=== PATIENT | female | born 1995 | race Caucasian/White ===

== ENCOUNTER 2018-04-14 18:14 | Inpatient (IN) | payer BC, OTHER ==
[~2018-04-14] VITALS: Ht 157.5 cm; Wt 53.1 kg
[~2018-04-14 18:14] MED LIST: MULT-1095 PO
--- NOTE | 2018-04-14 23:14 | NUR ---
PRE-ADMISSION NOTE Pt seen in intake office. Pt has a depressed mood and lethargic demeanor. Pt states they are beginning to experience s/s of withdrawal including body aches, chills, and abdominal cramping. Pt has a steady a gait and is A/O x 4. V/S: P:101, RR: 16, SPO2: 100, AND BP: 102/62. Pt is ready for admission to the unit.
--- NOTE | 2018-04-14 23:25 | NUR ---
ADMISSION NOTE Pt is a 23 y/o female who is being admitted for medically supervised withdrawal from Heroin. Pt is not currently intoxicated, as her last use was at 0800 on 04/14 of 0.2g of Heroin. Pt states that she is currently experiencing chills, body aches, abdominal cramping, anxiety, and agitation. Pt has a blunt affect, depressed mood, and disheveled appearance. Pt also has avoidant eyes contact. Pt is oriented to person, place, time, and purpose. Pt states that withdrawal from this substance has usually included body aches, sweats, chills, nausea, abdominal cramping, anxiety, agitation, and irritability. When I withdraw everything annoys me and bugs me. Pt denies ever overdosing or having any cardiac complication from withdrawing. Pt states current substance use as follows: 1. Heroin: 3-4g daily for the past year. Pt last use was 0800 on 04/14/18 of 0.2g. Her last use before that was the evening of 04/13/18 of 0.5g. She first began using when she was 16yrs old. Pt states she is seeking treatment today because they want to get sober but realized she cant do it on heir own. "I don't want to have to withdraw on my own. It's too painful and uncomfortable". Pts only other time in treatment was at [facility] in the summer of 2016. Pt states they went to an inpatient program, that she cant recall the name of, after, but left within 3 days because they werent helping her cope with her anxiety. Pt states she sruthi with her problems and anxiety by using Heroin. I know this isnt the right way to do things. Pt states Heroin has negatively affected her life, Heroin has caused me to drop out of high school and to be homeless on the streets. It has also caused me to wind up in care home and I dont want to ever go back. Im terrified of care home and if I keep using Ill wind up back there. Pt states I am ready to do whatever it takes to not wind up in care home. Pt states they wish to continue treatment in another inpatient program. Pt states the only support she has is her mother. All the other people I know are addicts. I dont have a lot to rely on. V/S: T: 97.9, P: 101, RR:16, SPO2: 100, BP: 104/62. Pts pulse is regular but tachycardic. Pts respirations are unlabored and even. Pt denies any pain. Pts skin is intact and she has NKA. Pt follows a regular diet when she can. Pt is a 20 cigarette per day smoker. Pt doesnt have a PCP and she was 15 the last time she saw a psychiatrist. Pt states they were found positive for Hepatitis C, but never received any treatment. Pt also states she was diagnosed w/ anxiety when she was 9 y/o. Pt was educated on the plan of care including detox, group and individual therapy, medication regimen, and discharge planning. Pt encouraged to have an open and honest line of communication w/ treatment team. Pt was given encouragement and support for making the choice to seek recovery.
[2018-04-14] MEDS ORDERED: MAG HYDROX/AL HYDROX/SIMETH 30 ML LIQUID UDC PO PRN (23:30)
[2018-04-14] MEDS ORDERED: HYDROXYZINE PAMOATE 25 MG CAPSULE PO PRN (23:30)
[2018-04-14] MEDS ORDERED: LOPERAMIDE HCL 2 MG CAPSULE PO PRN ×2 (23:30)
[2018-04-14] MEDS ORDERED: DICYCLOMINE HCL 20 MG TABLET PO PRN (23:30)
[2018-04-14] MEDS ORDERED: ONDANSETRON 4 MG/2 ML VIAL IM PRN (23:30)
[2018-04-14] MEDS ORDERED: LORAZEPAM 1 MG TABLET PO ONE (23:30)
[2018-04-14] MEDS ORDERED: diphenhydrAMINE 50 MG CAPSULE PO PRN (23:30)
[2018-04-14] MEDS ORDERED: MAGNESIUM HYDROXIDE 30 ML LIQUID UDC PO PRN (23:30)
[2018-04-14] MEDS ORDERED: ACETAMINOPHEN 325 MG TABLET PO PRN (23:30)
[2018-04-14] MEDS ORDERED: MIRALAX 17 GM POWD.PACK PO PRN (23:30)
[2018-04-14 23:54] LABS: *AMPHETAMINE, URINE POSITIVE (NEGATIVE); *BARBITURATE, URINE NEGATIVE (NEGATIVE); *CANNABINOID, URINE POSITIVE (NEGATIVE); *COCCAINE, URINE NEGATIVE (NEGATIVE); *OPIATE, URINE POSITIVE (NEGATIVE); *PHENCYCLIDINE SCREEN,URINE NEGATIVE (NEGATIVE)
[2018-04-15 00:15] VITALS: BP 104/62
[2018-04-15] MEDS: BUPRENORPHINE HCL 2 MG TAB.SUBL SL PRN ×3 (00:21→13:29)
--- NOTE | 2018-04-15 00:21 | NUR ---
PRN ATIVAN AND SUBUTEX Ativan 2mg and Subutex 4mg were given for CIWA of 13. Pt states their anxiety has increased and they feel like crap. Will reassess pt in 1hr.
[2018-04-15 00:37] LABS: *URINE HCG, QUAL NEGATIVE (NEGATIVE)
--- NOTE | 2018-04-15 01:21 | NUR ---
PRN ATIVAN AND SUBUTEX REASSESSMENT Pt is in bed w/ her eyes closed. Pt's respirations are unlabored and even.
--- NOTE | 2018-04-15 07:08 | NUR ---
END OF SHIFT NOTE Endorsed pt to oncoming nurse. Pt is a 23 y/o female A/O to person, place, time, and purpose. Pt was admitted for medically supervised withdrawal from Heroin. Pt began to present w/ anxiety, sweats, chills, body aches, depressed mood, flat affect, and agitation. A one time dose of both Ativan and Subutex were given and noted effective. Pt denies any S/I or H/I. Pts fluid intake was 500ml and she slept for 6hrs. Last COWS 13 @ 0000. Call light is within reach.
--- NOTE | 2018-04-15 07:30 | NUR ---
Start of Shift Notes: Report received from day shift nurse. Per day shift nurse, last COWS was 13. Upon start of shift, pt was in bed with eyes closed. No facial grimacing but noted with slight tremors. Pt stated I dont feel that good. I feel like my body is aching all over. During assessment, pt is AOx4. Respirations even and unlabored. Pt observed with restless legs, chills, and slight sweats. Pt currently on PRN Subutex to manage withdrawal symptoms. MD to see pt today to assess for taper management. Bed in lowest position. Side rails up x2. Call light functioning and within reach. All needs attended and met. Will continue to monitor.
[2018-04-15 08:00] VITALS: BP 93/57
--- NOTE | 2018-04-15 08:00 | NUR ---
COWS 15 Pt noted with increased pulse, slight sweating, frequent shifting, aching joints, slight tremors, anxiety. COWS 15.
[2018-04-15] MEDS ORDERED: TUBERCULIN,PURIF.PROT.DERIV. 5 TU/0.1 ML TEST ID ONE (09:00)
--- NOTE | 2018-04-15 09:25 | NUR ---
Subutex PRN: Pt noted with tremors, body aches, restless legs, and sweating. COWS 15. 4mg Subutex PRN given as ordered. Will continue to monitor.
--- NOTE | 2018-04-15 09:58 | NUR ---
Subutex correction: Unable to scan previous Subutex medication. Subutex given at 0925. Medication scanned at 0958.
[2018-04-15] MEDS ORDERED: 4 DAY TAPER BUPRENORPHINE -SERENITY PROTOCOL SL PRN (10:15)
--- NOTE | 2018-04-15 10:30 | NUR ---
Subutex Reassessment: Pt stated some relief from body aches. Pt currently in bed trying to relax. Subutex effective. COWS 14
[2018-04-15 12:00] VITALS: BP 113/65
--- NOTE | 2018-04-15 12:00 | NUR ---
COWS 14 Pt noted with increased heart rate, flushed face, restlessness, body aches, slight tremors, anxiety/agitation. COWS 14.
[2018-04-15] MEDS: ONDANSETRON ODT 4 MG TAB.RAPDIS SL PRN ×2 (13:28→19:39)
[2018-04-15] MEDS: BUPRENORPHINE HCL 2 MG TAB.SUBL SL SCH ×2 (15:59→21:17)
[2018-04-15 16:00] VITALS: BP 119/73
--- NOTE | 2018-04-15 16:00 | NUR ---
COWS 14 Pt noted with elevated pulse, flushed face, restlessness, generalized body aches, some tremors, anxiety/agitation. COWS 14.
--- NOTE | 2018-04-15 16:30 | NUR ---
MD Communication: Pt noted with increased HR from 100-110. Pt stated "I feel very anxious. I have an anxiety disorder". Pt noted unable to focus. MD made aware with new order for 2mg Ativan PO Q4HPRN for anxiety/agitation. Order noted and carried out.
[2018-04-15] MEDS: LORAZEPAM 1 MG TABLET PO PRN ×2 (16:47→21:17)
--- NOTE | 2018-04-15 16:47 | NUR ---
Ativan PRN: Pt noted with severe anxiety. Pt unable to sit still and is restless in bed. HR 97 while supine. 2mg Ativan PRN given as ordered for anxiety/agitation. Will continue to monitor.
--- NOTE | 2018-04-15 17:50 | NUR ---
Ativan Reassessment: Pt stated some relief from her anxiety. Pulse still noted around 90. Will continue to monitor.
--- NOTE | 2018-04-15 18:00 | NUR ---
Lab draw and order: Traffic Counter attempted to draw blood but bilateral upper extremities are scarred. Unable to draw blood. New order per MD to draw blood on lower extremities.
--- NOTE | 2018-04-15 19:13 | NUR ---
End of Shift Note: Report given to night shift manager nurse. Still pending lab draw. Lab to redraw on lower extremities later. Pt noted with increased heart rate and anxiety. MD with new order for 2mg Ativan PRN which was given once. Pt continues on Subutex taper to manage withdrawal symptoms. Last COWS was 14 at 1600. Bed in lowest position. Side rails up x2. Call light functioning and within reach. All needs attended and met.
--- NOTE | 2018-04-15 19:50 | NUR ---
START OF SHIFT NOTE Rcvd report from outgoing nurse. Pt is a 23 y/o female A/O to person, place, time, and purpose. Pt was admitted for medically supervised withdrawal from Opiates. Pt has been presenting w/ nausea, sweats, chills, body aches, anxiety, agitation, depressed and withdrawn mood, and blunted affect. PRN Subutex and Zofran were given and noted effective by outgoing nurse. Last COWS 14 @ 1600. Call light is within reach. Pt will continue to be monitored and needs met.
[2018-04-15 20:14] VITALS: BP 107/64
--- NOTE | 2018-04-15 20:17 | NUR ---
COWS ASSESSMENT COWS 18. Pt has been presenting w/ nausea, sweats, chills, body aches, anxiety, agitation, depressed and withdrawn mood, and blunted affect. V/S: T:97.9, P:110, RR:16, SPO2:100, BP:107/64.
[2018-04-15 20:45] LABS: ETHANOL < 3 MG/DL (0-0)
[2018-04-15 20:48] LABS: ALANINE AMINOTRANSFERASE 82 U/L (14-59); ALKALINE PHOSPHATASE 74 U/L (50-136); AMYLASE 56 U/L (25-115); ASPARTATE AMINOTRANSFERASE 26 U/L (15-37); BILIRUBIN,TOTAL 0.3 mg/dL (0.2-1.0); CARBON DIOXIDE 27 mmol/L (21-32); CHLORIDE 102 mmol/L (98-107); CREATININE 0.6 mg/dL (0.6-1.3); GLUCOSE 102 mg/dL (74-106); LIPASE 116 U/L (73-393); MAGNESIUM 1.9 mg/dL (1.8-2.4); POTASSIUM 3.8 mmol/L (3.5-5.1); TOTAL PROTEIN, SERUM 7.8 g/dL (6.4-8.2); UREA NITROGEN, BLOOD 8 mg/dL (7-18)
[2018-04-15 20:57] LABS: THYROID STIMULATING HORMONE 0.156 mIU/mL (0.358-3.740)
--- NOTE | 2018-04-15 21:17 | NUR ---
PRN ZOFRAN ADMINISTRATION Zofran 4mg given for nausea w/ 2 episodes of emesis. Will reassess pt in 30min. Addendum: 04/15/18 at 2253 by CHELSEY STALEY RN Error: wrong time, actually given @ 1939.
--- NOTE | 2018-04-15 21:17 | NUR ---
PRN ATIVAN ADMINISTRATION Ativan 2mg given for anxiety and CIWA 18. Pt c/o of racing thoughts. Pt has a HR of 110. Will reassess pt in 1 hr.
--- NOTE | 2018-04-15 21:47 | NUR ---
[place] REASSESSMENT Pt states nausea has subsided and no more episodes of emesis. Will continue to monitor pt. Addendum: 04/15/18 at 2300 by CHESLEY STALEY RN Error: wrong time, actually reassessed @ 2008.
--- NOTE | 2018-04-15 22:17 | NUR ---
PRN ATIVAN REASSESSMENT Pt is in bed w/ her eyes closed. Pt's respirations are unlabored and even. Will continue to monitor.
--- NOTE | 2018-04-16 00:29 | NUR ---
COWS DEFERRED/ V/S REFUSED Pt is in bed w/ her eyes closed. Pt's respirations are unlabored and even.
--- NOTE | 2018-04-16 04:30 | NUR ---
COWS DEFERRED,. V/S REFUSED Pt is in bed w/ her eyes closed. Pt's respirations are unlabored and even.
--- NOTE | 2018-04-16 07:02 | NUR ---
END OF SHIFT NOTE Endorsed pt to oncoming nurse. Pt is a 23 y/o female A/O to person, place, time, and purpose. Pt was admitted for medically supervised withdrawal from Opiates. Pt has been presenting w/ nausea, sweats, chills, body aches, anxiety, agitation, depressed and withdrawn mood, and blunted affect. Pt denies any S/I or H/I. PRN Ativan and Zofran were given and noted effective. Pts fluid intake was 350ml and she slept for 10hrs. Last COWS 14 @ 1600. Call light is within reach.
--- NOTE | 2018-04-16 07:50 | NUR ---
Start of Shift / Pt is a 23 y/o F admitted on 03/14/18 for medically supervised opiate withdrawal. Pt is placed on a 4 day subutex taper that started on 04/15/18 and tolerating well. Received pt laying in bed, has a disheveled appearance. Pt responds with her eyes closed stating, I feel horrible. Pt presents anxiety, agitation, irritability, restlessness, diaphoresis, gross tremors noted, generalized body aches- states 10/10 pain, nausea, goosebumps, stomach cramps, pupils larger than normal, and nasal congestion. Educated pt with todays plan of care and med regimen. Encouraged pt to increase fluids as tolerated to facilitate in detox. Last @1999, ativan 2 mg, and zofran PRNS were given last night. Pt slept 10 hrs. Side rails upx2, bed in lowest position. Call light is within reach. Safety measures in place. Will continue to monitor. Addendum: 04/16/18 at 1117 by MARC WOLFF RN HR: 109
[2018-04-16 08:00] VITALS: BP 97/62
[2018-04-16] MEDS: LORAZEPAM 1 MG TABLET PO PRN ×2 (08:34→14:52)
[2018-04-16] MEDS: METHOCARBAMOL 750 MG TABLET PO PRN (08:35)
--- NOTE | 2018-04-16 08:36 | NUR ---
PRN Ativan 2 mg po prn, robaxin 750 mg po prn, bentyl 20 mg po prn given for stomach cramps, muscle cramps, anxiety 03/22; pt presents with facial grimacing, restlessness, and irritability. Will monitor and reassess. Addendum: 04/16/18 at 1117 by MARC WOLFF RN HR: 109
[2018-04-16] MEDS ORDERED: BUPRENORPHINE HCL 2 MG TAB.SUBL SL SCH (09:00)
--- NOTE | 2018-04-16 09:36 | NUR ---
Reassessment Pt reports meds were effective and decreased anxiety now 5/10, muscle and stomach cramps. Will monitor and reassess.
--- NOTE | 2018-04-16 10:50 | NUR ---
UPDATE OF SUBSTANCE USE HX Pt verbalized that she uses methamphetamine 0.5 - 1 gram IV/smoke on a daily basis, for around 2 years. Last used on the day of admission.
--- NOTE | 2018-04-16 11:07 | NUR ---
PRN Vistaril 25 mg po given for increased anxiety, pt is in tears and in a position. Will monitor and reassess.
[2018-04-16 12:00] VITALS: BP 109/66
--- NOTE | 2018-04-16 12:02 | NUR ---
COWS 17 Pt presents increased anxiety, agitation, irritability, restlessness; pt burst in tears when asked how she was feeling, and is in a position in bed. Pt also exhibits dark circles under eyes, depressed and anxious expression, diaphoresis, cold/hot flashes, gross/fine tremors noted, generalized body aches- states 8/10 pain, nausea, goosebumps, stomach cramps, pupils larger than normal, and nasal congestion. Vistaril prn was given for increased anxiety. Encouraged pt to use deep breathing exercises. Will continue to monitor. Addendum: 04/16/18 at 1441 by MARC WOLFF RN HR 104
--- NOTE | 2018-04-16 12:07 | NUR ---
Reassessment Pt verbalized vistaril was not effective for increase in anxiety. Encouraged pt to use deep breathing exercises to promote relaxation. Will continue to monitor closely.
[2018-04-16] MEDS ORDERED: CLONIDINE HCL 0.1 MG TABLET PO PRN (13:45)
--- NOTE | 2018-04-16 14:46 | NUR ---
Therapist prompted client to attend group therapy.
--- NOTE | 2018-04-16 14:52 | NUR ---
PRN Ativan 2 mg po prn given for extreme anxiety, sense of panic. Pt is in tears and has poor eye contact. Will monitor and reassess. Addendum: 04/16/18 at 1752 by MARC WOLFF RN 02/19 anxiety
[2018-04-16] MEDS: BUPRENORPHINE HCL 2 MG TAB.SUBL SL SCH ×2 (14:53→20:55)
--- NOTE | 2018-04-16 15:52 | NUR ---
Reassessment Pt is laying in bed with eyes closed, appears to be sleeping. Safety measures in place. Will continue to monitor.
[2018-04-16 16:00] VITALS: BP 114/60
--- NOTE | 2018-04-16 16:30 | NUR ---
COWS 17 HR 108. Pt is laying in bed covered in blankets, has a avoidant eye contact, presents anxiety, agitation, irritability, restlessness, depressed and anxious expression and mood, diaphoresis, cold/hot flashes, gross/fine tremors noted, generalized body aches- states 8/10 pain, nausea, goosebumps, stomach cramps, pupils larger than normal, and nasal congestion. Refuses prns at this time. Encouraged pt to use deep breathing exercises. Will continue to monitor.
--- NOTE | 2018-04-16 18:37 | NUR ---
End Of Shift Pt has been isolated in room throughout shift, coming out occasionally to go smoke. Pt has been highly anxious, w/ increased emotional amplitude, depressive mood; tremors noted. Pt has been given Ativan 2 mg po prn x2, bentyl, robaxin, and vistaril prns. Pt refuses to take ibuprofen prn. Pt reported she was using meth 0.5 - 1 gram IV/smoke on a daily basis for 2 years straight. Last COWS 17. Pt ate 0/25/25% of meals. Consumed 550ml of fluid. Encouraged pt to increased consumption of fluids and meals as tolerated. Safety measures in place.
--- NOTE | 2018-04-16 18:55 | NUR ---
START OF SHIFT NOTE: The patient is a 23 year old female admitted to [facility] on 04/14/2018 for medically supervised from Opioid and Methamphetamine withdrawal, continues ordered 4 day Subutex tapers (today is second day), which tolerated well. Patient is alert and oriented x4, with steady gait, and with clear soft speech, cooperative, and verbally appropriate. She is appears sad, worried, with anxious mood and flat affect. Patient noted disheveled, unkempt, with uncombed hair. Patient denies SI/HI. The most recent COWS=17 at 1600. During day shift patient experienced moderate withdrawal symptoms such as anxiety, agitation, irritability, bilateral dilated pupils, nervousness, severe general body aches, headache, sweating, stomach cramps, bilateral tremors, restlessness, fatigue, and yawning, per day shift nurse report. PRN Vistaril 25 mg PO administrated for anxiety at 1107, and was effective. Patient remains compliant with treatment, medications, and diet regimen. Encouraged to attend group activities. Safe and calm environment provided. Encouraged to intake fluids as tolerated. All needs met. Safety measures: Call light within reach, bed locked in lowest position, padded bed rails up x2. Endorsed by day shift nurse.
[2018-04-16 20:00] VITALS: BP 112/68
--- NOTE | 2018-04-16 20:00 | NUR ---
COWS ASSESSMENT COWS=12 at 2000. The patient experienced withdrawal symptoms such as anxiety, agitation, irritability, bilateral dilated pupils, nervousness, general body aches, headache, flashed face, clammy skin, sweating, slight bilateral tremors, restlessness, fatigue, and yawning. Ordered medications scheduled for 2099 will be administrated. Safe and calm environment provided. All needs met. Safety measures: Call light within reach, bed locked in lowest position, padded bed rails up x2. Will continue to monitor closely.
--- NOTE | 2018-04-17 | NUR ---
VS REFUSED, COWS DEFERRED Patient sleeping on her side, respirations are unlabored and even, RR:15. Patient refused VS at 0000, COWS deferred at 0000, to be assessed while patient will awake. Safe and calm environment provided. All needs met. Safety measures: Call light within reach, bed locked in lowest position, padded bed rails up x2.
--- NOTE | 2018-04-17 04:00 | NUR ---
VS REFUSED, COWS DEFERRED Patient sleeping on her side, respirations are unlabored and even, RR:16. Patient refused VS at 0400, COWS deferred at 0400, to be assessed while patient will awake. Safe and calm environment provided. All needs met. Safety measures: Call light within reach, bed locked in lowest position, padded bed rails up x2.
[2018-04-17 06:00] VITALS: BP 90/51
--- NOTE | 2018-04-17 06:00 | NUR ---
COWS ASSESSMENT COWS=14 at 0600. The patient experienced withdrawal symptoms such as anxiety, agitation, irritability, bilateral dilated pupils, nervousness, severe general body aches, flashed face, clammy skin, sweating, slight bilateral tremors, restlessness, fatigue, and yawning. Safe and calm environment provided. All needs met. Safety measures: Call light within reach, bed locked in lowest position, padded bed rails up x2. Will continue to monitor closely.
[2018-04-17 06:07] LABS: HEPATITIS B SURFACE AG Negative (Negative)
--- NOTE | 2018-04-17 07:24 | NUR ---
END OF SHIFT NOTE: The patient is a 23 year old female admitted to [facility] for medically supervised from Opioid and Methamphetamine withdrawal, continues ordered 4 day Subutex tapers (today is third day), which tolerated well. Patient is alert and oriented x4, with steady gait, and with clear soft speech, cooperative, and verbally appropriate. She is appears sad, worried, with anxious mood and flat affect. Patient noted disheveled, unkempt, with uncombed hair. COWS=12 at 2000. The most recent COWS=14 at 0600. The patient experienced withdrawal symptoms such as anxiety, agitation, irritability, bilateral dilated pupils, nervousness, general body aches, , flashed face, clammy skin, sweating, slight bilateral tremors, restlessness, fatigue, and yawning. Patient refused VS at 0000 and at 0400, CIWA differed at 0000 and 0400. No PRN medications administrated during shift mgr. Patient remains compliant with treatment, medications, and diet regimen. Patient slept for 10 hours, intake 250 ml, output: voided x1. Safe and calm environment provided. Encouraged to intake fluids as tolerated. All needs met. Safety measures: Call light within reach, bed locked in lowest position, padded bed rails up x2. Endorsed to day shift nurse.
--- NOTE | 2018-04-17 08:00 | NUR ---
Start Of Shift / COWS 17 Pt is a 23 y/o F admitted on 03/14/18 for medically supervised opiate withdrawal. Pt is placed on a 4 day subutex taper that started on 04/15/18 and tolerating well. Received pt a/ox4 but drowsy, still in bed, has a disheveled appearance and a flat affect, is withdrawn. Pt presents high anxiety, agitation, irritability, restlessness, diaphoresis, gross and fine tremors noted, generalized body aches 10/10 pain, nausea, goosebumps, stomach cramps, pupils larger than normal, nasal congestion, increased emotional amplitude, anhedonia, and dysphoria. Educated pt with todays plan of care and med regimen. Encouraged pt to increase fluids as tolerated to facilitate in detox. Last COWS 14 @0600, no PRNS were given last night. Pt slept 10 hrs. Side rails upx2, bed in lowest position. Call light is within reach. Safety measures in place. Will continue to monitor.
[2018-04-17 08:09] VITALS: BP 96/62
[2018-04-17] MEDS: BUPRENORPHINE HCL 2 MG TAB.SUBL SL SCH ×3 (08:55→20:52)
--- NOTE | 2018-04-17 12:00 | NUR ---
COWS 17 Pt has been isolative in room, stated she does not feel well enough to attend group and socialize. Pt presents high anxiety, agitation, irritability, restlessness, diaphoresis, clammy skin, gross and fine tremors noted, generalized body aches 10/10 pain, piloerection of skin, stomach cramps, pupils larger than normal, nasal congestion, increased emotional amplitude, anhedonia, and dysphoria. Refuses prns at this time. Encouraged pt to participate in non-pharmacological methods. Safety measures in place.
[2018-04-17 12:37] VITALS: BP 90/57
[2018-04-17 16:30] VITALS: BP 138/86
--- NOTE | 2018-04-17 16:30 | NUR ---
COWS 17 Pt has been mostly isolative in room and withdrawn. Pt was able to take a shower and returned back to her room. Pt states her main symptom that is unmanageable is her anxiety but she refuses to take clonidine or vistaril. Pt presents high anxiety, agitation, irritability, restlessness, diaphoresis, clammy skin, cold/hot flashes and sensitivity, gross and fine tremors noted, generalized body aches pain, piloerection of skin, stomach cramps, pupils larger than normal, nasal congestion, increased emotional amplitude, anhedonia, and dysphoria. Was given scheduled subutex 2mg for 1500. Encouraged pt to use non-pharmacological methods to help cope with s/s. Safety measures in place.
--- NOTE | 2018-04-17 18:53 | NUR ---
START OF SHIFT NOTE: Endorsed patient, a 23 year old female, continues 4 day Subutex tapers (day 3), ordered for Opioid and Methamphetamine withdrawal. She is which tolerated well. Patient remains compliant with treatment, medications, and diet regimen. Patient is alert and oriented x4, with steady gait, clear soft speech. Last COWS=17 at 1500. During day shift patient experienced anxiety, agitation, irritability, tachycardia, bilateral dilated pupils, nasal congestion, nervousness, severe general body aches, goose bumps, sweating, stomach cramps, bilateral tremors, restlessness, and fatigue, per day shift nurse report. Encouraged to attend group activities. Safe and calm environment provided. Encouraged to intake fluids as tolerated. All needs met. Safety measures: Call light within reach, bed locked in lowest position, padded bed rails up x2. Endorsed by day shift nurse.
--- NOTE | 2018-04-17 18:53 | NUR ---
End Of Shift Pt has had elevated HR throughout shift. Pt has been isolative and withdrawn in room. Pt continued to be highly anxious, w/ increased emotional amplitude, depressive mood, pt was in tears whenever she was asked how she was doing. Pt refused all prn, stating clonidine and vistaril, robaxin and ibuprofen.. they dont work; despite educating pt. Last COWS 17. Pt ate 0/50/25% of meals. Consumed 1500 ml of fluid. Encouraged pt to increase consumption of fluids and meals due to low nutrional intake. Safety measures in place.
[2018-04-17 20:00] VITALS: BP 105/62
--- NOTE | 2018-04-17 20:00 | NUR ---
COWS ASSESSMENT COWS=13 at 2000. The patient presented with anxiety, agitation, irritability, nervousness, sweating, bilateral tremors, restlessness, fatigue, and yawning. Scheduled medications will be administrated as ordered. Safe and calm environment provided. All needs met. Safety measures: Call light within reach, bed locked in lowest position, padded bed rails up x2. Will continue to monitor closely.
--- NOTE | 2018-04-18 | NUR ---
VS REFUSED, COWS DEFERRED Patient sleeping on her side, respirations are unlabored and even, RR:14. Patient refused VS at 0000, COWS deferred at 0000, to be assessed while patient will awake. Safe and calm environment provided. All needs met. Safety measures: Call light within reach, bed locked in lowest position, padded bed rails up x2.
--- NOTE | 2018-04-18 04:00 | NUR ---
VS REFUSED, COWS DEFERRED Patient sleeping, respirations are unlabored and even, RR:14. Patient refused VS at 0400, COWS deferred at 0400, to be assessed while patient will awake. Safe and calm environment provided. All needs met. Safety measures: Call light within reach, bed locked in lowest position, padded bed rails up x2.
--- NOTE | 2018-04-18 07:30 | NUR ---
START OF SHIFT PT 23 y/o female admitted for medically supervised withdrawal from heroin. Received in room on bed with eyes closed resting, but easily arousable to name. Pt alert and oriented to name, place, and time. P[place]la. Skin warm and moist to touch. Respirations even and unlabored. Appears disheveled and unkempt. Clothes and empty drink bottles scattered throughout the room. Anxious. Very irritable this morning with one yelling episode. Bilateral hand tremors noted. Pressured speech. Complaints of body aches and general discomfort. It was reported that pt slept for 11 hours last night. Pt is on a 4 day subutex taper and is on day 4. Last cows=13 @1999. Bed on lowest position with side rails x2 up for safety. Call light within reach.
--- NOTE | 2018-04-18 07:38 | NUR ---
END OF SHIFT NOTE: Patient is alert and oriented x4, with clear speech, and steady gait. She is on last day on ordered 4 day Subutex taper, tolerated well. Withdrawal symptoms were closely monitored. The patient presented with anxiety, agitation, irritability, nervousness, sweating, bilateral tremors, restlessness, fatigue, and yawning. Last COWS=13 at 2000. No PRN Medications administered. Patient remains compliant with treatment, medications, and diet regimen. Patient was encouraged to attend group activities. Patient slept for a total of 11 hours, 1,591 ml, output: voided x2. Safe and calm environment provided. Patient was encouraged to intake fluids as tolerated. All needs met. Safety measures in place: Call light within reach, bed locked in lowest position, and padded bed rails up x2. Endorsed to day shift nurse.
[2018-04-18 08:00] VITALS: BP 104/60
--- NOTE | 2018-04-18 08:00 | NUR ---
COWS ASSESSMENT cows=13. Complaints of body aches. Bilateral hand tremors noted. Complaints of intermittent perspiration. Generalized discomfort.
[2018-04-18] MEDS: IBUPROFEN 600 MG TABLET PO PRN (08:37)
[2018-04-18] MEDS: METHOCARBAMOL 750 MG TABLET PO PRN (08:38)
--- NOTE | 2018-04-18 08:40 | NUR ---
PRN MOTRIN ROBAXIN pt states has general body ache 7/10. robaxin po prn per MD order given and tolerated well. Pt states has generalized body pain 6/10. Motrin po prn per MD order given and tolerated well.
[2018-04-18] MEDS ORDERED: BUPRENORPHINE HCL 2 MG TAB.SUBL SL SCH (09:00)
--- NOTE | 2018-04-18 09:40 | NUR ---
PRN SHANTEL SIMPSON EVAL Pt states pain is 4/10 and body aches is 4/10.
[2018-04-18 12:00] VITALS: BP 111/68
--- NOTE | 2018-04-18 12:00 | NUR ---
COWS ASSESSMENT cows=9. Bilateral hand tremors noted. Complaints generalized discomfort. Generalized body aches. Anxious and restless. Irritable with pressured speech noted.
[2018-04-18 16:00] VITALS: BP 106/52
--- NOTE | 2018-04-18 16:00 | NUR ---
COWS ASSESSMENT cows=8. Bilateral hand tremors noted. Anxious and restless. Easily irritable/ agitated. Pressured speech noted.
--- NOTE | 2018-04-18 19:01 | NUR ---
START OF SHIFT NOTE: The patient was endorsed by day shift nurse, report received. The patient is alert and oriented x4, completed ordered 5 day Subutex taper ordered for Opioid withdrawal, which tolerated well. Withdrawal symptoms was closely monitored throughout day shift. The latest COWS=8 at 1600. During day shift the patient presented with anxiety, agitation, irritability, nervousness, bilateral pupils size for room light larger than normal size, bilateral tremors that can be felt not observe, myalgia, restlessness, and fatigue. PRN Robaxin 750 mg PO administered for myalgia at 0840, PRN Motrin 600 mg PO administered for generalized body pain at 0840, and were effective. The patient remains compliant with medications. She was encouraged increased ADL, was encouraged to attend group activities, was encouraged to fluids intake as tolerated. All needs met. Safe and calm environment provided. Safety measures in place: Call light within reach, bed is locked in lowest position, padded bed rails up bilaterally. The patient endorsed by day shift nurse. Will continue to monitor closely.
--- NOTE | 2018-04-18 19:01 | NUR ---
END OF SHIFT PT 23 y/o female admitted for medically supervised withdrawal from heroin. Alert and oriented to name, place, and time. P[place]. Skin warm and moist to touch. Respirations even and unlabored. Appears disheveled and unkempt. Clothes and food wrappings scattered throughout the room. Encouraged to maintain hygiene. Anxious and restless. Complaints of body aches. Easily agitated and with episodes of raising voice this morning. Observed mostly in recreational room throughout the day. Attended group activity. Medication compliant. Last cows=8 @1600. Completed a 4 day subutex taper. Pt is scheduled to be discharged tomorrow. Bed on lowest position with side rails x2 up for safety. Call light within reach.
[2018-04-18 20:00] VITALS: BP 107/54
--- NOTE | 2018-04-18 20:00 | NUR ---
COWS ASSESSMENT COWS=10 at 2000. The patient presented with anxiety, agitation, irritability, nervousness, bilateral tremors that can be felt not observe, restlessness, fatigue, and yawning. Safe and calm environment provided. All needs met. Safety measures in place: Call light within reach, bed locked in lowest position, padded bed rails up x2. Will continue to monitor closely.
--- NOTE | 2018-04-19 | NUR ---
VS REFUSED, COWS DEFERRED Patient refused VS at 0000, COWS deferred at 0000, to be assessed while patient will awake. The patient is sleeping on her side, and her respirations are even and unlabored. RR=15. Safe and calm environment provided. All needs met. Safety measures: Call light within reach, bed locked in lowest position, padded bed rails up x2.
--- NOTE | 2018-04-19 04:00 | NUR ---
VS REFUSED, COWS DEFERRED Patient sleeping on her side, respirations are unlabored and even. RR:14. Patient refused VS, COWS deferred, to be assessed while patient will awake. Safe and calm environment provided. All needs met. Safety measures in place: Call light within reach, bed locked in lowest position, padded bed rails up x2. Will continue to monitor closely.
--- NOTE | 2018-04-19 07:27 | NUR ---
END OF SHIFT NOTE: Endorsed patient is alert and oriented x4: date, time, person, and situation, presented for Opioid withdrawal, and completed ordered 5 day Subutex taper , which tolerated well. Withdrawal symptoms was closely monitored. The patient remains compliant with medications. The patient scheduled for discharging today at 0930. COWS=10 at 2000. The patient presented with anxiety, agitation, irritability, nervousness, bilateral tremors that can be felt not observe, restlessness, fatigue, and yawning. No PRN medications was administered during my shift. Patient was encouraged increased activities. Encouraged to attend group activities. Encouraged to fluids intake as tolerated. The patient was encouraged to fluids intake as tolerated. The patient was encouraged to attend group activities. Patient slept for 10 hours, intake 1,091ml, output: voided x1. Safe and calm environment provided. Needs attended. Call light in reach, bed locked in low, padded side rails up as appropriate. The patient was endorsed to day shift nurse.
--- NOTE | 2018-04-19 07:30 | NUR ---
START OF SHIFT Pt 23 y/o female admitted for medically supervised withdrawal from heroin. Pt received in room on bed with eyes closed resting, but easily arousable to name. Pt alert and oriented to name, place, and time. P[place]. Skin warm and moist to touch. Respirations even and unlabored. Appears disheveled and unkempt. Clothes scattered throughout the room. Encouraged to maintain hygiene. Pt is scheduled to be discharged today. It was reported that pt slept for 7 hours last night. Last cows=10 @ 1999. Pt completed a 4 day subutex taper. Bed on lowest position with side rails x 2 up for safety. Call light within reach.
[2018-04-19 08:00] VITALS: BP 108/64
--- NOTE | 2018-04-19 08:00 | NUR ---
COWS ASSESSMENT cows=5. Anxious this morning. Easily agitated/ irritable. Bilateral hand tremors noted.
[2018-04-19] MEDS: IBUPROFEN 600 MG TABLET PO PRN (09:02)
[2018-04-19] MEDS: METHOCARBAMOL 750 MG TABLET PO PRN (09:02)
--- NOTE | 2018-04-19 09:08 | NUR ---
PRN ROBAXIN MOTRIN complaints of generalized body aches 7/10. Robaxin po prn per MD order given and tolerated well. Complaints of generalized body pain 6/10. Ibuprofen po prn per MD order given and tolerated well.
--- NOTE | 2018-04-19 10:08 | NUR ---
PRN BRENNEN SIMPSON MOTRIN Pt states pain 4/10. Pt states body aches 4/10.
--- NOTE | 2018-04-19 12:00 | NUR ---
COW ASSESSMENT cows=5. Anxious and restless. Pressured speech noted. Skin warm and moist to touch. Easily irritable.
--- NOTE | 2018-04-19 14:23 | NUR ---
DISCHARGE Pt 23 y/o female admitted for medically supervised withdrawal from heroin. Alert and oriented to name, place, and time. Perrla. Skin warm and dry to touch. Respirations even and unlabored. VS wnl. No home medications, belongings in cassette, and belongings in cabinet noted. Prescriptions, prescriptions, and personal belongings packed in pt bag. Pt discharged to [facility] via private transport. Pt denies any SI/ HI. No distress noted.
--- NOTE | 2018-04-19 14:54 | NUR ---
Therapist prompted client to attend group therapy.
== END 2018-04-19 09:53 | disposition other institution (70) | DRG 895 ==
LOC: SRC 22:48
PROVIDERS: ADMIT Internal Medicine; ATTEND Internal Medicine
PROC: HZ2ZZZZ Detoxification Services for Substance Abuse Treatment (ICD-10-PCS; principal; 2018-04-14)
PROC: HZ31ZZZ Individual Counseling for Substance Abuse Treatment, Behavioral (ICD-10-PCS; 2018-04-16)
PROC: HZ41ZZZ Group Counseling for Substance Abuse Treatment, Behavioral (ICD-10-PCS; 2018-04-19)
DX: F11.23 Opioid dependence with withdrawal (principal); F17.210 Nicotine dependence, cigarettes, uncomplicated; B19.20 Unspecified viral hepatitis C without hepatic coma; Z59.0 Homelessness; Z59.1 Inadequate housing; F41.9 Anxiety disorder, unspecified; Z81.8 Family history of other mental and behavioral disorders
CPT/HCPCS: 36415; 70030-TC; 80307; 80324; 80349; 80361; 83690; 83735; 84443; 84703; 86592; 86705; 86803; 87340; 87806; G0480; Q0162